=== PATIENT | female | born 1985 | race Caucasian/White ===

== ENCOUNTER 2017-04-12 15:11 | Emergency (ER) | payer SELFPAY ==
[~2017-04-12] VITALS: Ht 165.1 cm; Wt 66.0 kg
[2017-04-12 15:14] VITALS: BP 141/80; PULSE 17; PULSE 84; RESP 17; TEMP 97.8; O2SAT 97
[2017-04-12] MEDS ORDERED: diphenhydrAMINE HCL 50 MG/ML VIAL IV PUSH ONE (17:45)
[2017-04-12] MEDS ORDERED: SODIUM CHLORIDE 0.9% FLUSH 10 ML FLUSH IVF PRN (17:45)
[2017-04-12] MEDS ORDERED: METOCLOPRAMIDE HCL 10 MG/2 ML VIAL IV PUSH ONE (17:45)
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
[2017-04-12 18:10] VITALS: O2SAT 97
[2017-04-12 18:12] LABS: AUTOMATED NEUTROPHIL # 2.5 TH/MM3 (1.8-7.7); BASOPHIL % 0.6 % (0.0-2.0); EOSINOPHIL # 0.2 TH/MM3 (0-0.4); EOSINOPHIL % 3.7 % (0.0-4.0); HEMATOCRIT 37.5 % (35.0-46.0); HEMO FLAGS DIFF FINAL; LYMPH % 48.7 % (9.0-44.0); LYMPHOCYTE # 2.9 TH/MM3 (1.0-4.8); MEAN CORPUSCULAR HEMOGLOBIN 27.1 PG (27.0-34.0); MEAN CORPUSCULAR HGB CONC 32.3 % (32.0-36.0); MONO % 4.7 % (0.0-8.0); NEUT % 42.3 % (16.0-70.0); PLATELET COUNT 311 TH/MM3 (150-450); RED BLOOD COUNT 4.47 MIL/MM3 (4.00-5.30); RED CELL DISTRIBUTION WIDTH 20.7 % (11.6-17.2); WHITE BLOOD COUNT 5.9 TH/MM3 (4.0-11.0)
[2017-04-12 18:25] LABS: ANION GAP 5 MEQ/L (5-15); BICARBONATE 29.3 MEQ/L (21.0-32.0); BLOOD UREA NITROGEN 8 MG/DL (7-18); CHLORIDE 106 MEQ/L (98-107); GLOMERULAR FILTRATION RATE 87 ML/MIN (>89); POTASSIUM 3.6 MEQ/L (3.5-5.1); SODIUM (NA) 140 MEQ/L (136-145)
[2017-04-12 18:28] LABS: CREATINE KINASE 127 U/L (26-192)
[2017-04-12 18:34] LABS: FREE T3 2.34 PG/ML (2.18-3.98); FREE T4 0.73 NG/DL (0.76-1.46)
[2017-04-12 18:40] LABS: CKMB 0.6 NG/ML (0.5-3.6)
--- NOTE | 2017-04-13 19:35 | EKG ---
Date Performed: 04/12/2017 Time Performed: 17:21:24 PTAGE: 31 years EKG: Sinus rhythm NORMAL ECG NO PREVIOUS TRACING DOCTOR: Matheus Mortensen Interpretating Date/Time 04/13/2017 19:32:41
== END 2017-04-12 20:02 | disposition home or self-care (01) ==
LOC: NEPD 15:11
DX: R51 Headache (principal); R11.0 Nausea; F43.20 Adjustment disorder, unspecified; F17.210 Nicotine dependence, cigarettes, uncomplicated; H53.8 Other visual disturbances
CPT/HCPCS: 80048; 82550; 82552; 84439; 84443; 84481; 84484; 85025; 93005; 96374; 96375; 99284; J1200; J2765